=== PATIENT | male | born 1960 | race Caucasian/White ===

== ENCOUNTER 2023-09-26 07:21 | Emergency (ER) | payer SELFPAY ==
[~2023-09-26] VITALS: Ht 170.2 cm; Wt 59.0 kg
[2023-09-26] MEDS ORDERED: BENZONATATE 100 MG CAP PO STA (07:37)
[2023-09-26 08:31] LABS: INFLUENZAE A&B ANTIGEN (RAPID) POSITIVE FLU B (NEGATIVE); STREPTOCOCCUS GRP A ANTIGEN NEGATIVE (NEGATIVE)
[2023-09-26] MEDS ORDERED: BENZONATATE100 MG PO (08:35)
[2023-09-26 08:39] VITALS: BP 141/86
[2023-09-26 08:44] VITALS: O2SAT 99
== END 2023-09-26 08:54 | disposition home or self-care (01) ==
LOC: ER 08:00
DX: R50.9 Fever, unspecified (principal); J10.1 Influenza due to other identified influenza virus with other respiratory manifestations; R05.9 Cough, unspecified; Z11.52 Encounter for screening for COVID-19
CPT/HCPCS: 71046; 83518; 87070; 87400; 99283; U0002